=== PATIENT | female | born 1960 | race Caucasian/White ===

== ENCOUNTER 2024-06-05 13:53 | Inpatient (IN) | payer OTHER ==
[~2024-06-05] VITALS: Ht 162.6 cm; Wt 68.0 kg
[2024-06-05] MEDS ORDERED: NS 1,000 ML IV SCH ×2 (14:10→15:15)
[2024-06-05] MEDS ORDERED: METF500 PO (14:15)
[2024-06-05] MEDS ORDERED: ASPI81CH PO (14:16)
[2024-06-05 14:19] LABS: Source, Urine Straight Cath
[2024-06-05 14:24] LABS: Appearance, Urine Hazy (Clear); Bilirubin, Urine Neg (Neg); Blood, Urine 5+ (Neg); Color, Urine Yellow (P-Yellow); Glucose Qualitative, Urine 4+ (Neg); Ketones, Urine 3+ (Neg); Leukocyte Esterase, Urine Neg (Neg); Nitrite, Urine Neg (Neg); Protein, Urine 2+ (Neg); Specific Gravity, Urine 1.025 (1.003-1.022); Urobilinogen, Urine NORM (Normal)
[2024-06-05 14:35] LABS: BASOPHILS ABSOLUTE AUTO 0.03 K/mm3 (0.00-0.23); BASOPHILS PERCENT AUTO 0 % (0-2); EOSINOPHILS PERCENT AUTO 0 % (0-6); Hematocrit 44.7 % (33.0-51.0); Hemoglobin 15.6 g/dL (11.5-16.0); IMMATURE GRAN ABSOLUTE AUTO 0.11 K/mm3 (0.00-0.10); IMMATURE GRAN PERCENT AUTO 1 % (0-1); LYMPHOCYTES ABSOLUTE AUTO 1.54 K/mm3 (0.84-5.20); LYMPHOCYTES PERCENT AUTO 10 % (21-46); MONOCYTES ABSOLUTE AUTO 1.32 K/mm3 (0.16-1.47); MONOCYTES PERCENT AUTO 8 % (4-13); Mean Corpuscular HGB Conc 34.9 g/dL (31.5-36.5); Mean Corpuscular Volume 86 fL (80-100); Mean Platelet Volume 10.1 fL (9.1-12.4); NEUTROPHILS ABSOLUTE AUTO 12.72 K/mm3 (1.96-9.15); NEUTROPHILS PERCENT AUTO 81 % (41-73); Platelet Count 215 K/mm3 (150-400); RDW Coefficient Variation 12.2 % (11.7-14.2); RDW Standard Deviation 38.3 fL (35.1-46.3); White Blood Cell Count 15.72 K/mm3 (4.00-11.30)
[2024-06-05 14:49] LABS: Bacteria Many /hpf; Squamous Epithelial Cells Few /hpf (Few)
[2024-06-05 15:05] LABS: Albumin, Blood 1.8 g/dL (3.4-5.0); Albumin/Globulin Ratio 0.8 (0.8-1.8); Bilirubin, Total 0.6 mg/dL (0.1-1.0); Bun/Creatinine Ratio 54.3 (12.0-20.0); Calcium, Blood 5.4 mg/dL (8.5-10.1); Creatinine, Blood 0.65 mg/dL (0.40-1.00); Globulin, Blood 2.4 g/dL (2.2-4.0); Potassium, Blood 2.7 mmol/L (3.5-5.5); Total Protein, Blood 4.2 g/dL (6.4-8.2)
[2024-06-05] MEDS ORDERED: Potassium Chl 20MEQ/Water100ML 100 ML IV ONE (15:10)
[2024-06-05] MEDS ORDERED: CALCIUM GLUC IN NACL, ISO-OSM 100 ML IV ONE (15:15)
[2024-06-05 15:43] LABS: Base Excess Venous -9.5 mmol/L; Bicarbonate Venous 18.1 mmol/L (24.0-30.0); PCO2 Venous 31.5 mmHg (38-42); pH Blood Venous 7.33 (7.34-7.37)
[2024-06-05] MEDS ORDERED: CefTRIAXone Sodium 1,000 MG in NS 50 ML IV ONE (15:50)
[2024-06-05] MEDS ORDERED: Acetaminophen 325 MG TABLET PO PRN (17:25)
[2024-06-05] MEDS ORDERED: Lactated Ringer's 1,000 ML IV SCH (17:30)
[2024-06-05] MEDS ORDERED: Ondansetron HCl 2 MG / ML 2ML Vial IV PRN (17:30)
[2024-06-05] MEDS ORDERED: Labetalol HCL 5 MG/ML 4ML Injection (Single Dose) IV PRN (17:30)
[2024-06-05] MEDS ORDERED: Potassium Chloride 20 MEQ/15 ML UDC PO ONE (18:00)
[2024-06-05 18:34] LABS: Magnesium, Blood 2.4 mg/dL (1.6-2.4)
[2024-06-05] MEDS ORDERED: Potassium Chl 20MEQ/Water100ML 100 ML IV STA (18:43)
[2024-06-05 19:09] LABS: Beta-hydroxybutyrate 45.1 mg/dL (0.2-2.8); Bun/Creatinine Ratio 46.4 (12.0-20.0); Creatinine, Blood 1.1 mg/dL (0.40-1.00); Potassium, Blood 4.1 mmol/L (3.5-5.5)
[2024-06-05 19:10] LABS: Calcium, Blood 12.2 mg/dL (8.5-10.1)
[2024-06-05] MEDS ORDERED: Lactated Ringer's 1,000 ML IV ONE (19:32)
[2024-06-05] MEDS ORDERED: Insulin Human Lispro 100 Units/ML 3ML Syringe SC ONE (20:00)
[2024-06-05] MEDS ORDERED: Sodium Chloride 0.45% 1,000 ML IV SCH (20:00)
[2024-06-05] MEDS ORDERED: Insulin Human Lispro 100 Units/ML 3ML Syringe SC SCH ×2 (20:00)
[2024-06-05] MEDS ORDERED: Lactobacil 2-S.Thermo-Bifido 1 1 Cap PO SCH (21:00)
[2024-06-05] MEDS ORDERED: GABA100 PO (21:47)
[2024-06-05 22:50] LABS: Bun/Creatinine Ratio 54.6 (12.0-20.0); Creatinine, Blood 0.84 mg/dL (0.40-1.00); Potassium, Blood 5.1 mmol/L (3.5-5.5)
[2024-06-05 22:54] LABS: Calcium, Blood 9.4 mg/dL (8.5-10.1)
[2024-06-06 01:52] VITALS: BP 158/82
[2024-06-06 03:56] LABS: BASOPHILS ABSOLUTE AUTO 0.05 K/mm3 (0.00-0.23); BASOPHILS PERCENT AUTO 0 % (0-2); EOSINOPHILS ABSOLUTE AUTO 0.01 K/mm3 (0.00-0.68); EOSINOPHILS PERCENT AUTO 0 % (0-6); Hematocrit 46.8 % (33.0-51.0); Hemoglobin 16.1 g/dL (11.5-16.0); IMMATURE GRAN ABSOLUTE AUTO 0.09 K/mm3 (0.00-0.10); IMMATURE GRAN PERCENT AUTO 1 % (0-1); LYMPHOCYTES ABSOLUTE AUTO 2.69 K/mm3 (0.84-5.20); LYMPHOCYTES PERCENT AUTO 15 % (21-46); MONOCYTES ABSOLUTE AUTO 1.87 K/mm3 (0.16-1.47); MONOCYTES PERCENT AUTO 11 % (4-13); Mean Corpuscular HGB 30.4 pg (26.0-34.0); Mean Corpuscular HGB Conc 34.4 g/dL (31.5-36.5); Mean Corpuscular Volume 89 fL (80-100); Mean Platelet Volume 9.8 fL (9.1-12.4); NEUTROPHILS ABSOLUTE AUTO 12.89 K/mm3 (1.96-9.15); NEUTROPHILS PERCENT AUTO 73 % (41-73); Platelet Count 229 K/mm3 (150-400); RDW Coefficient Variation 12.6 % (11.7-14.2); Red Blood Cell Count 5.29 M/mm3 (3.80-5.20)
[2024-06-06 04:16] LABS: Bun/Creatinine Ratio 48.2 (12.0-20.0); Creatinine, Blood 0.93 mg/dL (0.40-1.00); Potassium, Blood 4.7 mmol/L (3.5-5.5)
[2024-06-06 06:01] VITALS: BP 151/90
[2024-06-06 07:18] VITALS: BP 150/86
[2024-06-06] MEDS ORDERED: Insulin NPH 10 Unit/0.1ML (Single Dose) SC SCH (08:00)
[2024-06-06 08:33] LABS: Magnesium, Blood 2.3 mg/dL (1.6-2.4)
[2024-06-06 08:39] LABS: Albumin, Blood 2.8 g/dL (3.4-5.0); Albumin/Globulin Ratio 0.7 (0.8-1.8); Bilirubin, Total 0.9 mg/dL (0.1-1.0); Bun/Creatinine Ratio 53.9 (12.0-20.0); Creatinine, Blood 0.8 mg/dL (0.40-1.00); Globulin, Blood 4.2 g/dL (2.2-4.0); Phosphorus, Blood 2.3 mg/dL (2.5-4.9); Potassium, Blood 4.6 mmol/L (3.5-5.5)
[2024-06-06] MEDS ORDERED: Aspirin 81 MG Chew PO SCH (09:00)
[2024-06-06] MEDS ORDERED: Enoxaparin 40 MG/0.4 ML SYR SC SCH (09:00)
[2024-06-06 11:50] VITALS: BP 158/91
[2024-06-06] MEDS ORDERED: Potassium Phosphate Dibasic 10 MM in Dextrose 5% 250 ML IV STA (13:42)
[2024-06-06 15:07] VITALS: BP 135/77
[2024-06-06] MEDS ORDERED: Insulin Human Lispro 100 Units/ML 3ML Syringe SC SCH (16:00)
[2024-06-06] MEDS ORDERED: CefTRIAXone Sodium 1,000 MG in NS 100 ML IV SCH (18:00)
--- NOTE | 2024-06-06 19:34 | NUR ---
VSS, A-Ox3-4 confused to time at times and slow to respond with flat affect, denies any pain, denies SOB, Max 2x assist, bed bound, on RA. 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 Pt FSBG 311 for dinner, Insulin scale increased. Pt can make some needs known, call roldan in hand, bed in lowest position.
[2024-06-06 19:42] VITALS: BP 139/73
[2024-06-06] MEDS ORDERED: Sodium Chloride 0.45% 1,000 ML IV SCH (21:50)
[2024-06-06 22:59] LABS: Bun/Creatinine Ratio 52.2 (12.0-20.0); Calcium, Blood 9.4 mg/dL (8.5-10.1); Creatinine, Blood 0.75 mg/dL (0.40-1.00); Potassium, Blood 4.3 mmol/L (3.5-5.5)
[2024-06-07 02:33] VITALS: BP 152/73
[2024-06-07 06:16] LABS: BASOPHILS ABSOLUTE AUTO 0.02 K/mm3 (0.00-0.23); BASOPHILS PERCENT AUTO 0 % (0-2); EOSINOPHILS ABSOLUTE AUTO 0.07 K/mm3 (0.00-0.68); EOSINOPHILS PERCENT AUTO 1 % (0-6); IMMATURE GRAN ABSOLUTE AUTO 0.05 K/mm3 (0.00-0.10); IMMATURE GRAN PERCENT AUTO 0 % (0-1); LYMPHOCYTES PERCENT AUTO 28 % (21-46); MONOCYTES ABSOLUTE AUTO 0.86 K/mm3 (0.16-1.47); MONOCYTES PERCENT AUTO 7 % (4-13); Mean Corpuscular HGB 30.3 pg (26.0-34.0); Mean Corpuscular HGB Conc 35.7 g/dL (31.5-36.5); Mean Corpuscular Volume 85 fL (80-100); Mean Platelet Volume 9.8 fL (9.1-12.4); NEUTROPHILS ABSOLUTE AUTO 7.66 K/mm3 (1.96-9.15); NEUTROPHILS PERCENT AUTO 64 % (41-73); Platelet Count 183 K/mm3 (150-400); RDW Coefficient Variation 12.3 % (11.7-14.2); RDW Standard Deviation 37.4 fL (35.1-46.3); Red Blood Cell Count 4.95 M/mm3 (3.80-5.20); White Blood Cell Count 11.96 K/mm3 (4.00-11.30)
[2024-06-07 06:45] LABS: Albumin, Blood 2.6 g/dL (3.4-5.0); Albumin/Globulin Ratio 0.7 (0.8-1.8); Bilirubin, Total 0.7 mg/dL (0.1-1.0); Calcium, Blood 9.4 mg/dL (8.5-10.1); Creatinine, Blood 0.72 mg/dL (0.40-1.00); Globulin, Blood 3.8 g/dL (2.2-4.0); Potassium, Blood 4.1 mmol/L (3.5-5.5); Total Protein, Blood 6.4 g/dL (6.4-8.2)
[2024-06-07 07:53] VITALS: BP 136/59
[2024-06-07] MEDS ORDERED: Insulin Human Lispro 100 Units/ML 3ML Syringe SC SCH ×2 (11:30)
[2024-06-07] MEDS ORDERED: Acetaminophen650 M1 PO (15:16)
[2024-06-07] MEDS ORDERED: GLIP2.5ER PO (15:16)
[2024-06-07] MEDS ORDERED: HUMALOG KW100 UNIT/1 SC (15:20)
[2024-06-07] MEDS ORDERED: ATOR40TA PO (15:21)
[2024-06-07 15:57] VITALS: BP 149/61
--- NOTE | 2024-06-07 17:35 | NUR ---
ATTEMPTED TO CALL [facility] TWICE @ 1730 AND 1739 W/O ANSWER. WILL TRY AGAIN PRIOR TO PT D/C.
--- NOTE | 2024-06-07 18:02 | NUR ---
ATTEMPTED TO CALL [facility] FOR REPORT FOR THIRD TIME @1800. NO ANSWER FROM FACILITY.
--- NOTE | 2024-06-07 18:25 | NUR ---
CALLED [facility] FOR A FOURTH TIME TO GIVE REPORT. STAFF MEMBER STATES THEY WILL HAVE TO CALL BACK IN "A WHILE" THE NURSE FOR PT IS ON LUNCH BREAK.
--- NOTE | 2024-06-07 18:28 | NUR ---
DISCHARGE: PT D/C @1825 VIA [facility] WITH TRANSPORT TO [facility]. ATTEMPTED MULTIPLE TIMES TO CALL AND GIVE REPORT TO STAFF. LAST CALL STAFF STATED THEY WOULD NEED TO CALL BACK NURSE FOR PT WAS ON LUNCH BREAK. TELE SENT BACK. IV REMOVED W/O COMPLICATIONS. NO QUESTIONS AT TIME OF D/C.
== END 2024-06-07 18:41 | disposition hospice, inpatient (51) | DRG 638 ==
LOC: ER 13:53 → MEDS 17:24
PROVIDERS: Emergency Medicine; Family Medicine; Nurse Practitioner Acute Care; ADMIT Internal Medicine
DX: E11.10 Type 2 diabetes mellitus with ketoacidosis without coma (principal); E87.0 Hyperosmolality and hypernatremia; E87.1 Hypo-osmolality and hyponatremia; N17.9 Acute kidney failure, unspecified; M62.82 Rhabdomyolysis; L97.801 Non-pressure chronic ulcer of other part of unspecified lower leg limited to breakdown of skin; N39.0 Urinary tract infection, site not specified; E88.09 Other disorders of plasma-protein metabolism, not elsewhere classified; E83.51 Hypocalcemia; E86.1 Hypovolemia; E87.6 Hypokalemia; E86.0 Dehydration; I95.9 Hypotension, unspecified; W19.XXXA Unspecified fall, initial encounter; Z79.82 Long term (current) use of aspirin; Z79.84 Long term (current) use of oral hypoglycemic drugs
CPT/HCPCS: 36415; 51702; 51798; 70450; 72100; 73502; 73562-RT; 80048; 80053; 81001; 82010; 82330; 82550; 82803; 82947; 83605; 83735; 84100; 84484; 85025; 87086; 96361-59; 96374-59; 96375-59; 97110; 97162; 97166; 97530; 99285-25; A9270; J0612; J0696; J1650; J1815; J3480; J7030; J7060; J7120

== ENCOUNTER 2024-07-01 04:46 | Day surgery (SDC) | payer MEDICARE, OTHER ==
[~2024-07-01 04:46] MED LIST: ASPI81CH PO; ATOR40TA PO; Acetaminophen650 M1 PO; GABA100 PO; GLIP2.5ER PO; HUMALOG KW100 UNIT/1 SC; METF500 PO
[2024-07-01] MEDS ORDERED: Lidocaine HCl 4% Cream 5 GM ONE (13:37)
== END 2024-07-02 23:06 | disposition home or self-care (01) ==
LOC: WOUND 04:46
DX: E11.621 Type 2 diabetes mellitus with foot ulcer (principal); L97.515 Non-pressure chronic ulcer of other part of right foot with muscle involvement without evidence of necrosis; L97.511 Non-pressure chronic ulcer of other part of right foot limited to breakdown of skin; E11.51 Type 2 diabetes mellitus with diabetic peripheral angiopathy without gangrene; E11.40 Type 2 diabetes mellitus with diabetic neuropathy, unspecified; I10 Essential (primary) hypertension; F17.200 Nicotine dependence, unspecified, uncomplicated; Z79.84 Long term (current) use of oral hypoglycemic drugs; Z90.710 Acquired absence of both cervix and uterus
CPT/HCPCS: A9270; G0463

== ENCOUNTER 2024-07-08 01:44 | Day surgery (SDC) | payer MEDICARE, OTHER ==
[2024-07-08] MEDS ORDERED: Lidocaine HCl 4% Cream 5 GM ONE (09:22)
== END 2024-07-08 23:00 | disposition home or self-care (01) ==
LOC: WOUND 01:44
DX: E11.621 Type 2 diabetes mellitus with foot ulcer (principal); L97.515 Non-pressure chronic ulcer of other part of right foot with muscle involvement without evidence of necrosis; L97.512 Non-pressure chronic ulcer of other part of right foot with fat layer exposed; E11.51 Type 2 diabetes mellitus with diabetic peripheral angiopathy without gangrene; I10 Essential (primary) hypertension
CPT/HCPCS: A6214; A9270

== ENCOUNTER 2024-07-15 02:35 | Day surgery (SDC) | payer MEDICARE, OTHER ==
[2024-07-15] MEDS ORDERED: Lidocaine HCl 4% Cream 5 GM ONE (10:13)
== END 2024-07-15 23:00 ==
LOC: WOUND 02:35
DX: E11.621 Type 2 diabetes mellitus with foot ulcer (principal); L97.515 Non-pressure chronic ulcer of other part of right foot with muscle involvement without evidence of necrosis; L89.314 Pressure ulcer of right buttock, stage 4; L89.219 Pressure ulcer of right hip, unspecified stage; E11.51 Type 2 diabetes mellitus with diabetic peripheral angiopathy without gangrene; I10 Essential (primary) hypertension
CPT/HCPCS: A6213; A6214; A9270; G0463

== ENCOUNTER 2024-07-22 02:49 | Day surgery (SDC) | payer MEDICARE, OTHER ==
[2024-07-22] MEDS ORDERED: Lidocaine HCl 4% Cream 5 GM ONE (10:11)
== END 2024-07-22 23:00 | disposition home or self-care (01) ==
LOC: WOUND 02:49
DX: E11.621 Type 2 diabetes mellitus with foot ulcer (principal); L97.415 Non-pressure chronic ulcer of right heel and midfoot with muscle involvement without evidence of necrosis; E11.622 Type 2 diabetes mellitus with other skin ulcer; L89.314 Pressure ulcer of right buttock, stage 4; L89.614 Pressure ulcer of right heel, stage 4; E11.51 Type 2 diabetes mellitus with diabetic peripheral angiopathy without gangrene; I10 Essential (primary) hypertension
CPT/HCPCS: A6213; A6214; A9270

== ENCOUNTER 2024-07-29 10:04 | Day surgery (SDC) | payer MEDICARE, OTHER | END 2024-07-29 23:09 | disposition home or self-care (01) | LOC: WOUND 10:04 | DX: E11.621 Type 2 diabetes mellitus with foot ulcer (principal); L97.413 Non-pressure chronic ulcer of right heel and midfoot with necrosis of muscle; L89.314 Pressure ulcer of right buttock, stage 4; L89.614 Pressure ulcer of right heel, stage 4; I10 Essential (primary) hypertension; E11.51 Type 2 diabetes mellitus with diabetic peripheral angiopathy without gangrene | CPT/HCPCS: 87070; 87075; 87076; 87077; 87147; 87185; 87186; 87205; A6213; A6214 ==

== ENCOUNTER 2024-08-06 03:33 | Day surgery (SDC) | payer MEDICARE, OTHER ==
[2024-08-06] MEDS ORDERED: Lidocaine HCl 4% Cream 5 GM ONE (13:19)
== END 2024-08-06 23:00 | disposition home or self-care (01) ==
LOC: WOUND 03:33
DX: E11.621 Type 2 diabetes mellitus with foot ulcer (principal); L97.413 Non-pressure chronic ulcer of right heel and midfoot with necrosis of muscle; L89.314 Pressure ulcer of right buttock, stage 4; L89.614 Pressure ulcer of right heel, stage 4; E11.622 Type 2 diabetes mellitus with other skin ulcer; E11.51 Type 2 diabetes mellitus with diabetic peripheral angiopathy without gangrene; I10 Essential (primary) hypertension
CPT/HCPCS: A6213; A9270

== ENCOUNTER 2024-08-14 04:36 | Day surgery (SDC) | payer MEDICARE, OTHER ==
[2024-08-14] MEDS ORDERED: Lidocaine HCl 4% Cream 5 GM ONE (10:13)
== END 2024-08-14 23:00 | disposition home or self-care (01) ==
LOC: WOUND 04:36
DX: E11.621 Type 2 diabetes mellitus with foot ulcer (principal); L97.515 Non-pressure chronic ulcer of other part of right foot with muscle involvement without evidence of necrosis; L89.314 Pressure ulcer of right buttock, stage 4; E11.51 Type 2 diabetes mellitus with diabetic peripheral angiopathy without gangrene; I10 Essential (primary) hypertension
CPT/HCPCS: A6213; A6214; A9270; G0463

== ENCOUNTER 2024-09-03 04:45 | Day surgery (SDC) | payer MEDICARE, OTHER ==
[2024-09-03] MEDS ORDERED: Silver Nitr/Potassium Nitrate 1 EA APPL ONE (09:46)
== END 2024-09-03 23:52 | disposition home or self-care (01) ==
LOC: WOUND 04:45
DX: E11.621 Type 2 diabetes mellitus with foot ulcer (principal); L97.515 Non-pressure chronic ulcer of other part of right foot with muscle involvement without evidence of necrosis; E11.51 Type 2 diabetes mellitus with diabetic peripheral angiopathy without gangrene; I10 Essential (primary) hypertension
CPT/HCPCS: A6213; A9270

== ENCOUNTER 2024-09-12 01:35 | Day surgery (SDC) | payer MEDICARE, OTHER ==
[2024-09-12] MEDS ORDERED: Silver Nitr/Potassium Nitrate 1 EA APPL ONE (10:19)
[2024-09-12] MEDS ORDERED: Lidocaine HCl 1% 20 ML MDV ONE (10:23)
== END 2024-09-12 23:00 | disposition home or self-care (01) ==
LOC: WOUND 01:35
DX: E11.621 Type 2 diabetes mellitus with foot ulcer (principal); L97.515 Non-pressure chronic ulcer of other part of right foot with muscle involvement without evidence of necrosis; L97.513 Non-pressure chronic ulcer of other part of right foot with necrosis of muscle; E11.622 Type 2 diabetes mellitus with other skin ulcer; E11.51 Type 2 diabetes mellitus with diabetic peripheral angiopathy without gangrene; I10 Essential (primary) hypertension
CPT/HCPCS: A6213; A9270

== ENCOUNTER 2024-10-03 04:51 | Day surgery (SDC) | payer MEDICARE, OTHER ==
[2024-10-03] MEDS ORDERED: Lidocaine HCl 4% Cream 5 GM ONE (10:20)
[2024-10-03] MEDS ORDERED: Silver Nitr/Potassium Nitrate 1 EA APPL ONE (10:42)
== END 2024-10-03 23:00 | disposition home or self-care (01) ==
LOC: WOUND 04:51
DX: E11.621 Type 2 diabetes mellitus with foot ulcer (principal); L97.515 Non-pressure chronic ulcer of other part of right foot with muscle involvement without evidence of necrosis; L97.512 Non-pressure chronic ulcer of other part of right foot with fat layer exposed; E11.51 Type 2 diabetes mellitus with diabetic peripheral angiopathy without gangrene; I10 Essential (primary) hypertension
CPT/HCPCS: A6213; A9270

== ENCOUNTER 2024-10-10 02:18 | Day surgery (SDC) | payer MEDICARE, OTHER ==
[2024-10-10] MEDS ORDERED: Lidocaine HCl 4% Cream 5 GM ONE (09:21)
== END 2024-10-10 23:00 | disposition home or self-care (01) ==
LOC: WOUND 02:18
DX: E11.621 Type 2 diabetes mellitus with foot ulcer (principal); L97.515 Non-pressure chronic ulcer of other part of right foot with muscle involvement without evidence of necrosis; E11.622 Type 2 diabetes mellitus with other skin ulcer; L89.314 Pressure ulcer of right buttock, stage 4; L89.614 Pressure ulcer of right heel, stage 4; E11.51 Type 2 diabetes mellitus with diabetic peripheral angiopathy without gangrene; I10 Essential (primary) hypertension
CPT/HCPCS: A6213; A9270

== ENCOUNTER 2024-10-24 04:58 | Day surgery (SDC) | payer MEDICARE, OTHER ==
[2024-10-24] MEDS ORDERED: Lidocaine HCl 4% Cream 5 GM ONE (09:42)
== END 2024-10-24 23:00 ==
LOC: WOUND 04:58
DX: E11.621 Type 2 diabetes mellitus with foot ulcer (principal); L97.412 Non-pressure chronic ulcer of right heel and midfoot with fat layer exposed; E11.622 Type 2 diabetes mellitus with other skin ulcer; L89.314 Pressure ulcer of right buttock, stage 4; L89.614 Pressure ulcer of right heel, stage 4; E11.51 Type 2 diabetes mellitus with diabetic peripheral angiopathy without gangrene; I10 Essential (primary) hypertension
CPT/HCPCS: A6213; A9270

== ENCOUNTER 2024-10-29 05:26 | Day surgery (SDC) | payer MEDICARE, OTHER | END 2024-10-29 23:00 | disposition home or self-care (01) | LOC: WOUND 05:26 | DX: E11.621 Type 2 diabetes mellitus with foot ulcer (principal); L97.512 Non-pressure chronic ulcer of other part of right foot with fat layer exposed; E11.622 Type 2 diabetes mellitus with other skin ulcer; E11.51 Type 2 diabetes mellitus with diabetic peripheral angiopathy without gangrene; I10 Essential (primary) hypertension | CPT/HCPCS: G0463 ==

== ENCOUNTER 2025-02-02 18:58 | Emergency (ER) | payer MEDICARE, OTHER ==
[~2025-02-02] VITALS: Ht 162.6 cm; Wt 72.6 kg
== END 2025-02-02 20:54 | disposition home or self-care (01) ==
LOC: ER 18:58
DX: S09.90XA Unspecified injury of head, initial encounter (principal); E11.9 Type 2 diabetes mellitus without complications; W10.9XXA Fall (on) (from) unspecified stairs and steps, initial encounter; Z79.82 Long term (current) use of aspirin; Z79.4 Long term (current) use of insulin; Z79.899 Other long term (current) drug therapy; Z79.84 Long term (current) use of oral hypoglycemic drugs
CPT/HCPCS: 70450; 99284-25

== ENCOUNTER 2025-02-27 23:21 | Observation (INO) | payer MEDICARE, OTHER ==
[~2025-02-27] VITALS: Ht 162.6 cm; Wt 76.7 kg
[2025-02-28] VITALS (7 sets, daily range): BP systolic 123–154; BP diastolic 51–97
[2025-02-28 00:19] LABS: BASOPHILS ABSOLUTE AUTO 0.05 K/mm3 (0.00-0.23); BASOPHILS PERCENT AUTO 0 % (0-2); EOSINOPHILS ABSOLUTE AUTO 0.16 K/mm3 (0.00-0.68); EOSINOPHILS PERCENT AUTO 1 % (0-6); Hematocrit 40.5 % (33.0-51.0); Hemoglobin 13.9 g/dL (11.5-16.0); IMMATURE GRAN ABSOLUTE AUTO 0.05 K/mm3 (0.00-0.10); IMMATURE GRAN PERCENT AUTO 0 % (0-1); LYMPHOCYTES ABSOLUTE AUTO 2.91 K/mm3 (0.84-5.20); LYMPHOCYTES PERCENT AUTO 24 % (21-46); MONOCYTES ABSOLUTE AUTO 0.84 K/mm3 (0.16-1.47); MONOCYTES PERCENT AUTO 7 % (4-13); Mean Corpuscular HGB 29.7 pg (26.0-34.0); Mean Corpuscular HGB Conc 34.3 g/dL (31.5-36.5); Mean Corpuscular Volume 87 fL (80-100); Mean Platelet Volume 9.3 fL (9.1-12.4); NEUTROPHILS PERCENT AUTO 67 % (41-73); Platelet Count 261 K/mm3 (150-400); RDW Standard Deviation 40.5 fL (35.1-46.3); Red Blood Cell Count 4.68 M/mm3 (3.80-5.20); White Blood Cell Count 12.11 K/mm3 (4.00-11.30)
[2025-02-28] MEDS ORDERED: NS 1,000 ML IV SCH (00:35)
[2025-02-28 00:36] LABS: International Normalized Ratio 0.96; Prothrombin Time Results 10.6 Sec (9.7-11.5)
[2025-02-28] MEDS ORDERED: dilTIAZem HCL 125 MG in Dextrose 5% 100 ML IV SCH ×2 (00:40→02:40)
[2025-02-28] MEDS ORDERED: Diltiazem HCl 5 MG / ML 5ML Vial IV ONE (00:40)
[2025-02-28 00:46] LABS: Albumin, Blood 3.6 g/dL (3.4-5.0); Bilirubin, Total 0.4 mg/dL (0.1-1.0); Bun/Creatinine Ratio 21.7 (12.0-20.0); Creatinine, Blood 0.69 mg/dL (0.40-1.00); Globulin, Blood 3.6 g/dL (2.2-4.0); Magnesium, Blood 1.6 mg/dL (1.6-2.4); Phosphorus, Blood 3.1 mg/dL (2.5-4.9); Potassium, Blood 3.8 mmol/L (3.5-5.5); Thyroid Stimulating Hormone 1.73 uIU/mL (0.360-4.800); Total Protein, Blood 7.2 g/dL (6.4-8.2)
[2025-02-28 01:32] LABS: Source, Urine Clean Catch
[2025-02-28 01:39] LABS: Bilirubin, Urine Neg (Neg); Blood, Urine Neg (Neg); Glucose Qualitative, Urine 4+ (Neg); Ketones, Urine Neg (Neg); Leukocyte Esterase, Urine Neg (Neg); Nitrite, Urine Neg (Neg); Protein, Urine Neg (Neg); Urobilinogen, Urine NORM (Normal)
[2025-02-28 01:44] LABS: Appearance, Urine Clear (Clear); Color, Urine Pale Yellow (P-Yellow)
[2025-02-28] MEDS ORDERED: Ondansetron HCl 2 MG / ML 2ML Vial IV PRN (02:15)
[2025-02-28] MEDS ORDERED: Acetaminophen 325 MG TABLET PO PRN (02:20)
[2025-02-28] MEDS ORDERED: Magnesium Sulf 2 GM/Water 50ML 50 ML IV ONE (02:40)
[2025-02-28] MEDS ORDERED: Potassium Chloride 20 MEQ TabCR PO ONE (03:00)
[2025-02-28] MEDS ORDERED: JARDIANCE10 MG PO (04:27)
[2025-02-28] MEDS ORDERED: LOSA50 PO (04:27)
[2025-02-28] MEDS ORDERED: TRAM50 PO (04:28)
--- NOTE | 2025-02-28 05:01 | NUR ---
ADMIT NOTE REPORT RECEIVED BY THIS RN @ APPROX [id number], BY FREELANCE DIRECTOR [email or web address] PT ARRIVED TO PCU ROOM 19 @ APPROX 0402, PT TRANSFERRED 2 PERSON ASSIST TO BED. PT ALERT AND HOLDING APPROPRIATE CONVERSATION, VSS, CARDIZEM ON SB.
[2025-02-28 05:23] LABS: BASOPHILS ABSOLUTE AUTO 0.06 K/mm3 (0.00-0.23); BASOPHILS PERCENT AUTO 1 % (0-2); EOSINOPHILS ABSOLUTE AUTO 0.12 K/mm3 (0.00-0.68); EOSINOPHILS PERCENT AUTO 1 % (0-6); Hematocrit 39.3 % (33.0-51.0); Hemoglobin 13.4 g/dL (11.5-16.0); IMMATURE GRAN ABSOLUTE AUTO 0.04 K/mm3 (0.00-0.10); IMMATURE GRAN PERCENT AUTO 0 % (0-1); LYMPHOCYTES ABSOLUTE AUTO 3.61 K/mm3 (0.84-5.20); LYMPHOCYTES PERCENT AUTO 33 % (21-46); MONOCYTES ABSOLUTE AUTO 0.64 K/mm3 (0.16-1.47); MONOCYTES PERCENT AUTO 6 % (4-13); Mean Corpuscular HGB 29.4 pg (26.0-34.0); Mean Corpuscular HGB Conc 34.1 g/dL (31.5-36.5); Mean Corpuscular Volume 86 fL (80-100); NEUTROPHILS ABSOLUTE AUTO 6.54 K/mm3 (1.96-9.15); NEUTROPHILS PERCENT AUTO 59 % (41-73); NRBC ABSOLUTE 0.02 K/mm3 (0.00-0.02); NRBC Auto 0.2 /100 WBC (0.0-0.2); RDW Coefficient Variation 13.1 % (11.7-14.2); RDW Standard Deviation 40.7 fL (35.1-46.3); Red Blood Cell Count 4.56 M/mm3 (3.80-5.20); White Blood Cell Count 11.01 K/mm3 (4.00-11.30)
[2025-02-28 05:41] LABS: Mean Platelet Volume 9.7 fL (9.1-12.4); Platelet Count 250 K/mm3 (150-400)
[2025-02-28 05:51] LABS: Albumin, Blood 3.2 g/dL (3.4-5.0); Bilirubin, Total 0.4 mg/dL (0.1-1.0); Bun/Creatinine Ratio 24.8 (12.0-20.0); Calcium, Blood 9.1 mg/dL (8.5-10.1); Creatinine, Blood 0.56 mg/dL (0.40-1.00); Globulin, Blood 3.3 g/dL (2.2-4.0); Magnesium, Blood 1.9 mg/dL (1.6-2.4); Potassium, Blood 3.9 mmol/L (3.5-5.5); Total Protein, Blood 6.5 g/dL (6.4-8.2)
--- NOTE | 2025-02-28 05:54 | NUR ---
SHIFT SUMMARY PT IS A&O X4, ABLE TO MAKE NEEDS KNOWN, MOVING UPPER EXTREMITIES WITH PURPOSE, RIGHT LOWE EXTREMITIES IS HARD TO MOVE/PT REPORTS HX OF INJURY DUE TO FALL AND IS RECEIVING PHYSICAL THERAPY, LLE IS WEAK BUT ABLE TO MOVE WITH PURPOSE, REPOSITIONED IN BED WITH ASSISTANCE OF MEDICAL STAFF, PT IS A 2 PERSON ASSIST WITH FWW, USING CALL LIGHT APPROPRIATELY. CONTINUOUS SPO2, SPO2 GREATER THAN 90% RA , PT DENIES SOB AT THIS TIME, NO SIGNS OF RESPIRATORY DISTRESS NOTED THIS SHIFT, LUNGS SOUND CLEAR T/O. CONTINUOUS TELE MONITORING, SINUS 70-90 S , PT DENIES CHEST P/P, PULSES PRESENT T/O, CAP REFILL WNL, BP STABLE WITH MAP GREATER THAN 65, CARDIZEM ON SB. BOWEL TONES PRESENT IN ALL 4Q, PT DENIES FEELINGS OF NAUSAE OR CONSTIPATION. PT VOIDING YELLOW URINE TO BSC. BED LOWEST POSITION, CALL LIGHT IN REACH, AWAITING TO GIVE REPORT TO ONCOMING RN.
[2025-02-28] MEDS ORDERED: Insulin Human Lispro 100 Units/ML 3ML Syringe SC SCH (07:30)
[2025-02-28] MEDS ORDERED: Enoxaparin 40 MG/0.4 ML SYR SC SCH (09:00)
[2025-02-28] MEDS ORDERED: Aspirin 81 MG Chew PO SCH (09:00)
[2025-02-28] MEDS ORDERED: Metoprolol Succinate 25 MG TABCR PO SCH (10:00)
[2025-02-28] MEDS ORDERED: Rivaroxaban 10 MG Tab PO SCH (10:28)
[2025-02-28] MEDS ORDERED: METO25ER PO (13:43)
[2025-02-28] MEDS ORDERED: XARELTO20 MG PO ×2 (13:45→13:46)
--- NOTE | 2025-02-28 16:42 | NUR ---
SHIFT SUMMARY MS ACOSTA HAS BEEN SLEEPY TODAY, DOZING ON AND OFF. EASILY AROUSABLE. SHE HAD CT PE AND ECHO DONE TODAY. SHE HAS DENIED ANY CHEST PAIN/PRESSURE OR SHORTNESS OF BREATH TODAY. SR ON TELEMETRY, NO CALLS FROM SENIOR IT ASSISTANT. 1 PERSON ASSIST UP TO COMMODE. ENCOURAGED TO SIT UP IN THE CHAIR BUT SHE HAS DECLINED SO FAR, SAID SHE IS TOO TIRED. SHE DID WALK WITH PHYSICAL THERAPIST. SHE LIVES IN A TRAILER WITH HER SON AND SAID SHE HAS STEEP STEPS TO GET UP INTO IT THAT SHE CAN NOT MANAGE BY HERSELF. DISCHARGE MEDICATIONS FAXED TO [facility] AND PT ENCOURAGED TO CALL THE PHARMACY TO ENSURE THERE WILL BE NO BARRIERS FOR HER GETTING HER MEDICATIONS WHEN SHE IS DISCHARGED. BED LOW, CALL LIGHT IN REACH.
[2025-03-01 04:46] VITALS: BP 170/76
--- NOTE | 2025-03-01 05:58 | NUR ---
SHIFT SUMMARY PT IS A&O X4, ABLE TO MAKE NEEDS KNOWN, MOVING UPPER EXTREMITIES WITH PURPOSE, RIGHT LOWE EXTREMITIES IS HARD TO MOVE/PT REPORTS HX OF INJURY DUE TO FALL AND IS RECEIVING PHYSICAL THERAPY, LLE IS WEAK BUT ABLE TO MOVE WITH PURPOSE, REPOSITIONED IN BED WITH ASSISTANCE OF MEDICAL STAFF, PT IS A 2 PERSON ASSIST WITH FWW, USING CALL LIGHT APPROPRIATELY. CONTINUOUS SPO2, SPO2 GREATER THAN 90% RA , PT DENIES SOB AT THIS TIME, NO SIGNS OF RESPIRATORY DISTRESS NOTED THIS SHIFT, LUNGS SOUND CLEAR T/O. CONTINUOUS TELE MONITORING, SINUS 60-80 S , PT DENIES CHEST P/P, PULSES PRESENT T/O, CAP REFILL WNL, BP STABLE WITH MAP GREATER THAN 65. BOWEL TONES PRESENT IN ALL 4Q, PT DENIES FEELINGS OF NAUSAE OR CONSTIPATION. PT VOIDING YELLOW URINE TO BSC. BED LOWEST POSITION, CALL LIGHT IN REACH, AWAITING TO GIVE REPORT TO ONCOMING RN.
[2025-03-01 07:58] VITALS: BP 157/62
--- NOTE | 2025-03-01 12:02 | NUR ---
PT D/C'D HOME W/ TRANSPORT SET. MEDICATIONS ARE READY AT [facility]. THE PT IS TRYING TO HAVE HER SON POST GRADUATE INTERN HER MEDICATIONS BEFORE THEY CLOSE AND PAY FOR THE MEDICATIONS OVER THE PHONE. HER YOUNGER SON THAT LIVES WITH HER WILL BE AT HOME TO HELP HER GET INTO HER TRAILER. VITAL SIGNS REMAINS STABLE. ON TELE PT IS SR. RA W/ SP02 >93% THE PT DENIES AY SOB OR ANGINA. ALL BELONGINGS AND HER COMMAND AND CONTROL OFFICER AND TWO PACKS OF CIGARETTES WERE RETURNED TO THE PT AT DISCHARGE. HER RFA IV WAS REMOVED BY THE AID BEFORE LEAVING. EDUCATION PROVIDED TO THE PT AND QUESTIONS ANSWERED. NO FURTHER NOTES FROM THIS RN.
[2025-03-02 15:24] LABS: ANTITHROMBIN, ENZYM (ACTIVITY) 92 % (76-128)
[2025-03-02 17:38] LABS: PROTEIN C FUNCTIONAL 140 % (83-168)
[2025-03-02 20:10] LABS: PROTEIN S AG FREE 77 % (55-123)
[2025-03-02 20:15] LABS: APC RESISTANCE 3.76 (>=2.00); FACTOR V LEIDEN BY PCR Not Done; FACV REF SPECIMEN Not Done
[2025-03-02 21:27] LABS: ANTI-XA QUALITATIVE INTERP Not Performed (Not Present); ANTICOAG MEDICATION NEUTRALIZ Not Performed (Not Performed); DRVVT 1:1 MIX RATIO Not Performed (<=1.20); DRVVT CONFIRMATION RATIO Not Performed (<=1.20); DRVVT SCREEN RATIO 0.95 (<=1.20); HEXAGONAL PHOSPHOLIPID CONFIRM Not Performed s (<=7.9); NEUTRALIZED DRVVT SCREEN RATIO Not Performed (<=1.20); NEUTRALIZED PTT-LA RATIO Not Performed (<=1.20); PTT-LA RATIO 1.05 (<=1.20); THROMBIN TIME (TT) Not Performed s (<=19.5)
[2025-03-02 22:36] LABS: B2GLYCOPROTEIN 1, IGG ANTIBODY <10 SGU (<=20); B2GLYCOPROTEIN 1, IGM ANTIBODY <10 SMU (<=20)
[2025-03-03 00:30] LABS: CARDIOLIPIN ANTIBODY IGG <10 GPL (<=14); CARDIOLIPIN ANTIBODY IGM <10 MPL (<=12)
[2025-03-03 01:43] LABS: HOMOCYSTEINE, TOTAL 9 umol/L (0-15)
[2025-03-06 13:19] LABS: PROTHROMBIN F2 G20210A VARIANT Negative; PT PCR SPECIMEN Whole Blood
== END 2025-03-01 11:40 | disposition home or self-care (01) ==
LOC: ER 23:21 → ERHOLD 23:22 → ER 02-28 02:23 → PCU 02-28 02:23 → ERHOLD 02-28 02:23 → PCU 02-28 03:55
PROVIDERS: Emergency Medicine; Internal Medicine; ADMIT Student in an Organized Health Care Education/Training Program
DX: I26.99 Other pulmonary embolism without acute cor pulmonale (principal); I48.0 Paroxysmal atrial fibrillation; E11.9 Type 2 diabetes mellitus without complications; I10 Essential (primary) hypertension; I25.10 Atherosclerotic heart disease of native coronary artery without angina pectoris; M54.9 Dorsalgia, unspecified; G89.29 Other chronic pain; F17.210 Nicotine dependence, cigarettes, uncomplicated; Z79.01 Long term (current) use of anticoagulants; Z79.82 Long term (current) use of aspirin; Z79.4 Long term (current) use of insulin; Z79.84 Long term (current) use of oral hypoglycemic drugs; Z79.899 Other long term (current) drug therapy
CPT/HCPCS: 36415; 71046; 71260; 80053; 81003; 81240; 82947; 83036; 83090; 83735; 83880; 84100; 84443; 84484; 85025; 85300; 85303; 85306; 85307; 85379; 85610; 85613; 85730; 86146; 86147; 93005; 93010; 93306; 94762; 96365; 96366; 96367; 96372; 96376; 97110; 97161; 99285-25; A9270; G0378; J1650; J3475; J7030; Q9967

== ENCOUNTER 2025-05-07 14:17 | Emergency (ER) | payer MEDICARE ==
[~2025-05-07] VITALS: Ht 162.6 cm; Wt 74.8 kg
[~2025-05-07 14:17] MED LIST changes: +JARDIANCE10 MG PO; +LOSA50 PO; +METO25ER PO; +TRAM50 PO; +XARELTO20 MG PO
[2025-05-07 15:40] LABS: BASOPHILS ABSOLUTE AUTO 0.05 K/mm3 (0.00-0.23); BASOPHILS PERCENT AUTO 1 % (0-2); EOSINOPHILS ABSOLUTE AUTO 0.20 K/mm3 (0.00-0.68); EOSINOPHILS PERCENT AUTO 3 % (0-6); Hematocrit 39.9 % (33.0-51.0); Hemoglobin 13.5 g/dL (11.5-16.0); IMMATURE GRAN ABSOLUTE AUTO 0.01 K/mm3 (0.00-0.10); IMMATURE GRAN PERCENT AUTO 0 % (0-1); LYMPHOCYTES ABSOLUTE AUTO 2.58 K/mm3 (0.84-5.20); LYMPHOCYTES PERCENT AUTO 40 % (21-46); MONOCYTES ABSOLUTE AUTO 0.43 K/mm3 (0.16-1.47); MONOCYTES PERCENT AUTO 7 % (4-13); Mean Corpuscular HGB Conc 33.8 g/dL (31.5-36.5); Mean Corpuscular Volume 89 fL (80-100); NEUTROPHILS ABSOLUTE AUTO 3.11 K/mm3 (1.96-9.15); NEUTROPHILS PERCENT AUTO 49 % (41-73); NRBC ABSOLUTE 0.00 K/mm3 (0.00-0.02); NRBC Auto 0.0 /100 WBC (0.0-0.2); Platelet Count 269 K/mm3 (150-400); RDW Coefficient Variation 12.8 % (11.7-14.2); RDW Standard Deviation 41.8 fL (35.1-46.3)
[2025-05-07] MEDS ORDERED: CefTRIAXone Sodium 1,000 MG in NS 100 ML IV ONE (16:00)
[2025-05-07 16:02] LABS: Alanine Aminotransfer (ALT/SGP 23.0 U/L (12-78); Albumin, Blood 3.4 g/dL (3.4-5.0); Albumin/Globulin Ratio 0.9 (0.8-1.8); Anion Gap 4.0 mmol/L (3-11); Aspartate Aminotrans (AST/SGOT 20.0 U/L (12-37); Bilirubin, Total 0.5 mg/dL (0.1-1.0); Blood Urea Nitrogen 9.0 mg/dL (8-24); CO2, Blood 25.0 mmol/L (21-32); Calcium, Blood 9.7 mg/dL (8.5-10.1); Chloride, Blood 106.0 mmol/L (98-108); Creatinine, Blood 0.47 mg/dL (0.40-1.00); Globulin, Blood 3.8 g/dL (2.2-4.0); Glucose, Blood 261.0 mg/dL (70-99); Potassium, Blood 3.5 mmol/L (3.5-5.5); Sodium, Blood 131.0 mmol/L (136-145); Total Protein, Blood 7.2 g/dL (6.4-8.2)
[2025-05-07] MEDS ORDERED: Vibramycin100 MG PO (17:13)
[2025-05-07] MEDS ORDERED: AMOCLA875 PO (17:20)
== END 2025-05-07 18:30 | disposition home or self-care (01) ==
LOC: ER 14:17
PROVIDERS: Physician Assistant
DX: L02.611 Cutaneous abscess of right foot (principal); E11.621 Type 2 diabetes mellitus with foot ulcer; L97.519 Non-pressure chronic ulcer of other part of right foot with unspecified severity; Z79.01 Long term (current) use of anticoagulants; Z79.84 Long term (current) use of oral hypoglycemic drugs
CPT/HCPCS: 73630; 80053; 85025; 87070; 87205; 96365; 99284-25; J0696